=== PATIENT | female | born 1950 ===

== ENCOUNTER 2019-04-03 10:42 | Outpatient (CLI) | payer OTHER | END 2019-04-03 11:19 | disposition home or self-care (01) | LOC: LAB 10:42 | DX: E03.8 Other specified hypothyroidism (principal); D63.8 Anemia in other chronic diseases classified elsewhere; N30.90 Cystitis, unspecified without hematuria; E78.00 Pure hypercholesterolemia, unspecified; K92.1 Melena; Z12.11 Encounter for screening for malignant neoplasm of colon ==

== ENCOUNTER 2019-04-03 11:19 | Outpatient (CLI) | payer OTHER | END 2019-04-03 11:20 | disposition home or self-care (01) | LOC: NUCLEAR 11:19 | DX: M81.0 Age-related osteoporosis without current pathological fracture (principal) ==